=== PATIENT | female | born 1965 | race Caucasian/White ===

== ENCOUNTER 2022-02-21 13:16 | Emergency (ER) | payer BC ==
[~2022-02-21] VITALS: Ht 160 cm; Wt 77.3 kg
[2022-02-21 13:22] VITALS: TEMP 98.3
[2022-02-21 14:45] VITALS: BP 127/79; PULSE 87
== END 2022-02-21 14:40 | disposition home or self-care (01) ==
LOC: COL.ER 13:16
DX: Z20.3 Contact with and (suspected) exposure to rabies (principal); Z23 Encounter for immunization; Z28.310 Unvaccinated for COVID-19